=== PATIENT | male | born 1980 | race Caucasian/White ===

== ENCOUNTER 2021-11-23 17:30 | Outpatient (CLI) | payer BC | END 2021-11-23 17:31 | disposition home or self-care (01) | LOC: SLEEPLAB 17:30 | PROVIDERS: ATTEND Family Medicine | DX: G47.33 Obstructive sleep apnea (adult) (pediatric) (principal); R53.83 Other fatigue; E66.9 Obesity, unspecified; Z68.41 Body mass index [BMI] 40.0-44.9, adult | CPT/HCPCS: 95800 ==